=== PATIENT | female | born 1990 | race Caucasian/White ===

== ENCOUNTER 2019-09-07 15:13 | Emergency (ER) | payer MEDICAID ==
[~2019-09-07] VITALS: Ht 152.4 cm; Wt 80.0 kg
[2019-09-07] MEDS ORDERED: ONDANSETRON HCL 4MG/2ML INJ IV STA (17:00)
[2019-09-07] MEDS ORDERED: MAGNESIUM 4 G PREMIX 100 ML IV ONE (17:00)
[2019-09-07] MEDS ORDERED: SODIUM CHLORIDE 0.9% 1,000 ML IV ONE (17:00)
[2019-09-07] MEDS ORDERED: LABETALOL 5MG/ML SYR 20 MG/4 ML SYRINGE IV ONE (17:15)
[2019-09-07 17:38] LABS: BASOPHILS % 0.9 % (0.0-2.0); EOSINOPHILS % 1.2 % (0.0-5.0); HEMATOCRIT. 35.2 % (36.0-48.0); HEMOGLOBIN. 12.2 g/dL (12.0-16.0); LYMPHOCYTES % 20.7 % (20.0-50.0); MEAN CORPUSCULAR HEMOGLOBIN 30.1 pg (28.0-32.0); MEAN CORPUSCULAR VOLUME 86.7 fL (81.0-99.0); MEAN PLATELET VOLUME 7.7 fl (7.4-10.4); MONOCYTES % 6.9 % (2.0-8.0); NEUTROPHILS % 70.3 % (40.0-76.0); PLATELET 269 x1000/uL (130-400); RED BLOOD CELL COUNT 4.06 mill/uL (4.2-5.4); RED CELL DISTRIBUTION WIDTH 13.3 % (11.6-14.6)
[2019-09-07 17:46] LABS: INR 0.9; PROTHROMBIN TIME 9.6 sec (9.6-11.0)
[2019-09-07 17:49] LABS: CLARITY URINE CLOUDY (CLEAR); COLOR URINE YELLOW (YELLOW); KETONES URINE NEGATIVE (NEGATIVE); LEUKOCYTE ESTERASE URINE 2+ (NEGATIVE); NITRITE URINE NEGATIVE (NEGATIVE); OCCULT BLOOD URINE NEGATIVE (NEGATIVE); PROTEIN URINE NEGATIVE (NEGATIVE); SPECIFIC GRAVITY URINE 1.015 (1.005-1.030)
[2019-09-07 17:57] LABS: CHLORIDE 108 mEq/L (98-107)
[2019-09-07 18:00] LABS: ETHANOL BLOOD < 10 mg/dL
[2019-09-07 18:07] LABS: *AMPHETAMINES SCREEN URINE NEGATIVE (NEGATIVE); *BARBITURATES SCREEN URINE NEGATIVE (NEGATIVE); *BENZODIAZEPINES SCREEN URINE NEGATIVE (NEGATIVE); *COCAINE SCREEN URINE NEGATIVE (NEGATIVE)
[2019-09-07 18:08] LABS: CANNABINOID URINE SCREEN NEGATIVE (NEGATIVE); METHADONE URINE SCREEN NEGATIVE (NEGATIVE); OPIATES URINE SCREEN NEGATIVE (NEGATIVE); PHENCYCLIDINE URINE SCREEN NEGATIVE (NEGATIVE)
[2019-09-07 18:21] LABS: B-HCG QUANTITATIVE 11373 mIU/mL (<3)
[2019-09-07] MEDS ORDERED: ACETAMINOPHEN 325MG TABLET PO ONE (19:45)
[2019-09-07 21:30] VITALS: BP 107/58
== END 2019-09-07 21:45 | disposition home or self-care (01) ==
LOC: ER 15:13
DX: O16.2 Unspecified maternal hypertension, second trimester (principal); O23.42 Unspecified infection of urinary tract in pregnancy, second trimester; O26.892 Other specified pregnancy related conditions, second trimester; R51 Headache; Z3A.22 22 weeks gestation of pregnancy; Z90.49 Acquired absence of other specified parts of digestive tract
CPT/HCPCS: 36415; 70551; 76805; 80053; 80305; 80320; 81003; 83690; 83735; 84443; 84702; 85025; 85610; 86850; 86900; 86901; 93005; 96374; 99284; J2405; J3475; J7030; G0480

== ENCOUNTER 2020-01-05 08:00 | Inpatient (IN) | payer MEDICAID ==
[~2020-01-05] VITALS: Ht 154.9 cm; Wt 95.7 kg
[2020-01-05] MEDS ORDERED: PNV1TABL76 PO (08:46)
[2020-01-05] MEDS ORDERED: NALOXONE HCL 0.4 MG/ML 1ML VIAL IM PRN (09:00)
[2020-01-05] MEDS ORDERED: LIDOCAINE HCL 1% 20ML VIAL (Pyxis) INJ INFIL PRN (09:00)
[2020-01-05] MEDS ORDERED: CARBOPROST TROMETHAMINE 250 MCG/ML AMPUL IM PRN (09:00)
[2020-01-05] MEDS ORDERED: METHYLERGONOVINE MALEATE 0.2 MG/ML IM PRN (09:00)
[2020-01-05] MEDS ORDERED: DEXT 5%/LR + PITOCIN 20UNITS/L 1,000 ML IV PRN (09:00)
[2020-01-05] MEDS ORDERED: MISOPROSTOL 100MCG TABLET VG PRN (09:00)
[2020-01-05] MEDS: LACTATED RINGERS 1,000 ML IV SCH ×4 (09:44→21:41)
[2020-01-05 10:01] LABS: CLARITY URINE CLOUDY (CLEAR); COLOR URINE DARK YELLOW (YELLOW); KETONES URINE TRACE (NEGATIVE); LEUKOCYTE ESTERASE URINE TRACE (NEGATIVE); NITRITE URINE NEGATIVE (NEGATIVE); OCCULT BLOOD URINE NEGATIVE (NEGATIVE); PROTEIN URINE 1+ (NEGATIVE); SPECIFIC GRAVITY URINE 1.019 (1.005-1.030)
[2020-01-05 10:03] LABS: BASOPHILS % 0.1 % (0.0-2.0); EOSINOPHILS % 1.1 % (0.0-5.0); HEMATOCRIT. 37.6 % (36.0-48.0); HEMOGLOBIN. 13.3 g/dL (12.0-16.0); LYMPHOCYTES % 17.8 % (20.0-50.0); MEAN CORPUSCULAR HEMOGLOBIN 30.5 pg (28.0-32.0); MEAN CORPUSCULAR VOLUME 86.3 fL (81.0-99.0); MEAN PLATELET VOLUME 8.6 fl (7.4-10.4); PLATELET 223 x1000/uL (130-400); RED BLOOD CELL COUNT 4.36 mill/uL (4.2-5.4); RED CELL DISTRIBUTION WIDTH 15.3 % (11.6-14.6)
[2020-01-05 10:12] LABS: INR 0.9; PROTHROMBIN TIME 9.6 sec (9.6-11.0)
[2020-01-05 10:21] LABS: *AMPHETAMINES SCREEN URINE NEGATIVE (NEGATIVE); *BARBITURATES SCREEN URINE NEGATIVE (NEGATIVE); *BENZODIAZEPINES SCREEN URINE NEGATIVE (NEGATIVE); *COCAINE SCREEN URINE NEGATIVE (NEGATIVE)
[2020-01-05 10:22] LABS: CANNABINOID URINE SCREEN NEGATIVE (NEGATIVE); METHADONE URINE SCREEN NEGATIVE (NEGATIVE); OPIATES URINE SCREEN NEGATIVE (NEGATIVE); PHENCYCLIDINE URINE SCREEN NEGATIVE (NEGATIVE)
[2020-01-05] MEDS: MISOPROSTOL 100MCG TABLET VG PRN ×3 (11:01→23:41)
[2020-01-05 11:16] LABS: HEPATITIS B SURFACE ANTIGEN NEGATIVE
[2020-01-05] MEDS: BUTORPHANOL TARTRATE 2 MG/ML VIAL IV PRN (19:59)
[2020-01-06] MEDS: LACTATED RINGERS 1,000 ML IV SCH ×2 (00:54→07:12)
[2020-01-06] MEDS: MISOPROSTOL 100MCG TABLET VG PRN (04:17)
[2020-01-06] MEDS: BUTORPHANOL TARTRATE 2 MG/ML VIAL IV PRN (04:26)
[2020-01-06] MEDS ORDERED: FENTANYL CITRATE/PF 50MCG/ML 2ML VIAL ONE ×2 (10:20→20:48)
[2020-01-06] MEDS ORDERED: BUPIVACAINE HCL/PF 0.25% (2.5MG/ML) 10ML ONE (10:21)
[2020-01-06] MEDS ORDERED: SODIUM CHLORIDE 0.9% 10ML VIAL ONE (10:21)
[2020-01-06] MEDS ORDERED: EPHEDRINE SULFATE 50MG/ML VIAL ONE (10:21)
[2020-01-06] MEDS ORDERED: ROPIVACAINE HCL 2MG/ML (0.2%) 200ML BOTTLE IR ONE ×2 (10:30→20:00)
[2020-01-06] MEDS ORDERED: ROPIVACAINE HCL/PF EPIDURAL 200 ML EPI NR (10:45)
[2020-01-06] MEDS ORDERED: ONDANSETRON HCL 4MG/2ML INJ ONE (11:13)
[2020-01-06] MEDS ORDERED: METOCLOPRAMIDE HCL 10MG/2ML VIAL ONE (11:14)
[2020-01-06] MEDS ORDERED: ROPIVACAINE HCL/PF EPIDURAL 200 ML EPI SCH (20:15)
[2020-01-06] MEDS ORDERED: LACTATED RINGERS 1,000 ML IV SCH (23:45)
[2020-01-07] MEDS ORDERED: DEXT 5%/LR + PITOCIN 20UNITS/L 1,000 ML IV SCH (01:34)
[2020-01-07] MEDS ORDERED: HEMORRHOIDAL SUPP PR PRN (01:45)
[2020-01-07] MEDS ORDERED: IBUPROFEN 400MG TABLET PO PRN (01:45)
[2020-01-07] MEDS ORDERED: GLYCERIN/WITCH HAZEL LEAF MEDICATED PAD TOP PRN (01:45)
[2020-01-07] MEDS ORDERED: RHO(D) IMMUNE GLOBULIN 300 MCG/SYR IM PRN (01:45)
[2020-01-07] MEDS ORDERED: BISACODYL 10MG SUPP PR PRN (01:45)
[2020-01-07] MEDS ORDERED: LANOLIN OINT 7GM TUBE TOP PRN (01:45)
[2020-01-07] MEDS ORDERED: BENZOCAINE/LANOLIN/ALOE VERA SPRAY TOP PRN (01:45)
[2020-01-07] MEDS ORDERED: DIPHENHYDRAMINE 25MG CAPSULE PO PRN (01:45)
[2020-01-07 04:00] VITALS: BP 127/71
[2020-01-07] MEDS: IBUPROFEN 800MG TABLET PO PRN ×3 (04:23→20:26)
[2020-01-07] MEDS ORDERED: KETOROLAC 30MG/ML VIAL IV PRN (06:15)
[2020-01-07 07:36] VITALS: BP 113/61
[2020-01-07] MEDS: PRENATAL VIT/FE FUMARATE/FA TABLET PO SCH (08:29)
[2020-01-07] MEDS: MAGNESIUM/ALUMINUM HYDROXIDE/SIMETHICONE 30ML UDC PO SCH ×4 (08:29→20:24)
[2020-01-07] MEDS: SIMETHICONE 80MG TABLET CHEW PO SCH ×4 (08:29→20:24)
[2020-01-07 16:01] VITALS: BP 112/74
[2020-01-07] MEDS ORDERED: DOCUSATE SODIUM 100MG CAPSULE PO SCH (21:00)
[2020-01-07 22:00] VITALS: BP 118/60
[2020-01-08 06:39] LABS: BASOPHILS % 0.1 % (0.0-2.0); EOSINOPHILS % 1.2 % (0.0-5.0); HEMATOCRIT. 30.7 % (36.0-48.0); HEMOGLOBIN. 10.7 g/dL (12.0-16.0); LYMPHOCYTES % 19.5 % (20.0-50.0); MEAN CORPUSCULAR HEMOGLOBIN 30.1 pg (28.0-32.0); MEAN CORPUSCULAR VOLUME 86.3 fL (81.0-99.0); MEAN PLATELET VOLUME 8.1 fl (7.4-10.4); NEUTROPHILS % 71.2 % (40.0-76.0); PLATELET 161 x1000/uL (130-400); RED BLOOD CELL COUNT 3.55 mill/uL (4.2-5.4)
[2020-01-08 07:28] VITALS: BP 120/60
[2020-01-08] MEDS: IBUPROFEN 800MG TABLET PO PRN ×2 (08:12→18:31)
[2020-01-08] MEDS: MAGNESIUM/ALUMINUM HYDROXIDE/SIMETHICONE 30ML UDC PO SCH (08:16)
[2020-01-08] MEDS: PRENATAL VIT/FE FUMARATE/FA TABLET PO SCH (08:17)
[2020-01-08] MEDS: SIMETHICONE 80MG TABLET CHEW PO SCH (08:17)
[2020-01-08 10:00] VITALS: BP 101/62
== END 2020-01-08 18:30 | disposition home or self-care (01) | DRG 560 ==
LOC: 8 EST LDRP 08:00 → OBSVTOIN 08:00 → 8EST 01-07 03:49
PROVIDERS: ADMIT Obstetrics & Gynecology; ATTEND Obstetrics & Gynecology
PROC: 10E0XZZ Delivery of Products of Conception, External Approach (ICD-10-PCS; principal; 2020-01-07)
PROC: 0KQM0ZZ Repair Perineum Muscle, Open Approach (ICD-10-PCS; 2020-01-07)
PROC: 3E0R3BZ Introduction of Anesthetic Agent into Spinal Canal, Percutaneous Approach (ICD-10-PCS; 2020-01-07)
PROC: 00HU33Z Insertion of Infusion Device into Spinal Canal, Percutaneous Approach (ICD-10-PCS; 2020-01-07)
DX: O36.63X0 Maternal care for excessive fetal growth, third trimester, not applicable or unspecified (principal); O24.420 Gestational diabetes mellitus in childbirth, diet controlled; Z37.0 Single live birth; O70.1 Second degree perineal laceration during delivery; O99.214 Obesity complicating childbirth; Z3A.39 39 weeks gestation of pregnancy
CPT/HCPCS: 36415; 80305; 81003; 85025; 86592; 86703; 86762; 86850; 86900; 87340; 99281; J0595; J1885; J2405; J2590; J2765; J2795; J3010; J3490